=== PATIENT | female | born 2000 | race Caucasian/White ===

== ENCOUNTER 2021-06-27 06:33 | Day surgery (SDC) | payer MEDICAID, SELFPAY ==
[~2021-06-27] VITALS: Ht 149.9 cm; Wt 70.3 kg
[2021-06-27 07:22] LABS: HCG,QUAL RESULT NEGATIVE (NEGATIVE)
[2021-06-27] MEDS ORDERED: MEPERIDINE 100 MG INJ. 100 MG/ML VIAL ONE (08:00)
[2021-06-27] MEDS ORDERED: SIMETHICONE 40 MG/0.6 ML ML ONE (08:00)
[2021-06-27] MEDS ORDERED: MIDAZOLAM HCL 5 MG/5 ML VIAL ONE (08:01)
[2021-06-27 10:14] VITALS: BP_SYST 110
== END 2021-06-27 10:00 | disposition home or self-care (01) ==
LOC: SDS 06:33 → SMU 06:44 → SDS 10:00
PROVIDERS: ATTEND Internal Medicine Gastroenterology
DX: K44.9 Diaphragmatic hernia without obstruction or gangrene (principal); K29.80 Duodenitis without bleeding; K29.50 Unspecified chronic gastritis without bleeding; Z79.899 Other long term (current) drug therapy
CPT/HCPCS: 36415; 43239; 43249; 84703; 87426; 88305; 88312; 88313; 99152; G0378; J2175; J2250

== ENCOUNTER 2021-09-12 07:34 | Day surgery (SDC) | payer MEDICAID, SELFPAY ==
[~2021-09-12] VITALS: Ht 149.9 cm; Wt 69.4 kg
[2021-09-12 08:13] LABS: HCG,QUAL RESULT NEGATIVE (NEGATIVE)
[2021-09-12] MEDS ORDERED: MEPERIDINE 100 MG INJ. 100 MG/ML VIAL ONE (08:17)
[2021-09-12] MEDS ORDERED: SIMETHICONE 40 MG/0.6 ML ML ONE (08:17)
[2021-09-12] MEDS ORDERED: MIDAZOLAM HCL 5 MG/5 ML VIAL ONE (08:17)
[2021-09-12 10:57] VITALS: BP_SYST 110
== END 2021-09-12 09:45 | disposition home or self-care (01) ==
LOC: SMU 07:34 → SDS 07:34
PROVIDERS: ATTEND Internal Medicine Gastroenterology
DX: R13.10 Dysphagia, unspecified (principal); K22.2 Esophageal obstruction; K44.9 Diaphragmatic hernia without obstruction or gangrene; K59.00 Constipation, unspecified; Z79.899 Other long term (current) drug therapy; Z20.822 Contact with and (suspected) exposure to COVID-19
CPT/HCPCS: 43249; 84703; 99152; G0378; J2175; J2250; U0003

== ENCOUNTER 2021-11-09 05:40 | Day surgery (SDC) | payer MEDICAID, SELFPAY ==
[~2021-11-09] VITALS: Ht 149.9 cm; Wt 68.0 kg
[2021-11-09 06:54] LABS: HCG,QUAL RESULT NEGATIVE (NEGATIVE)
[2021-11-09] MEDS ORDERED: MEPERIDINE 100 MG INJ. 100 MG/ML VIAL ONE (07:46)
[2021-11-09] MEDS ORDERED: MIDAZOLAM HCL 5 MG/5 ML VIAL ONE (07:46)
[2021-11-09 14:56] VITALS: BP_SYST 115
== END 2021-11-09 14:56 | disposition home or self-care (01) ==
LOC: SDS 05:40 → SMU 05:40 → SDS 14:56
PROVIDERS: ATTEND Internal Medicine Gastroenterology
DX: R13.10 Dysphagia, unspecified (principal); K44.9 Diaphragmatic hernia without obstruction or gangrene; K59.00 Constipation, unspecified; Z79.899 Other long term (current) drug therapy; Z20.822 Contact with and (suspected) exposure to COVID-19
CPT/HCPCS: 36415; 43249; 84703; 87426; 99152; G0378; J2175; J2250; U0003